=== PATIENT | male | born 1940 | race Caucasian/White ===

== ENCOUNTER → 2018-01-23 | Outpatient (CLI) | payer MEDICARE, OTHER ==
--- NOTE | 2018-01-23 20:11 | CONS ---
CONSULTATION 77-year-old male patient who has chronic atrial fibrillation. During a recent evaluation with his radiology director there were complaints of increased fatigue and some degree of sleepiness and for that reason, the patient was referred to me. His ensured me that the patient snores loudly and quits breathing. He goes to bed around 10:00 p.m., wakes up 7:00 am in the morning. He describes his sleep quality to be poor. He wakes up on and off during the night. Weight has been stable for years without any recent weight gain or weight loss. Denies waking up, choking or gasping for air. No nocturia, no dry mouth. No napping during the day. 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 He does not have any significant anatomic problems in his upper airway. No facial trauma. No substance abuse. No sleep paralysis. No hallucinations. No cataplexy. No clear psychiatric disorder such as anxiety or depression. PAST MEDICAL HISTORY: Chronic atrial fibrillation. PAST SURGICAL HISTORY: Rotator cuff surgery repair in 2013. Right biceps tendon release in 2016, extensor tendon release from the elbow in 2004. Colonoscopy in 1991, inguinal hernia repair 1968. Tonsillectomy in 1966. Tonsils and adenoids as a child. DRUG ALLERGIES: Not known. MEDICATION LIST: Includes Lipitor, Xarelto and Cardia XT. FAMILY HISTORY: Negative for sleep apnea. SOCIAL HISTORY: Nonsmoker. No history of alcohol or IV drugs. REVIEW OF SYSTEMS: 12-point review of system was done. Positive for fatigue and tiredness. Some degree of sleepiness. No palpitation. No chest pain. No shortness of breath. No nocturnal dyspnea or heartburn. No grinding of the teeth. No sleepwalking or sleep talking. No restlessness in lower extremities. No choking or gasping sensation at nighttime. No irritability. No depression or anxiety. No claustrophobia. PHYSICAL EXAMINATION: BP is 124/68, pulse 82, respirations 16, temperature 97.9. Saturation 96% on room air. Weight is 231. Height is 6 feet 1 inch, neck size 16-1/2 inches. GENERAL APPEARANCE: Calm, comfortable. Head is atraumatic, normocephalic. NECK: Supple. There is no JVD. No goiter or neck masses. Mallampati class 2. LUNGS: Clear to auscultation. HEART: Sounds regular rate and rhythm. Normal S1, S2. No S3. No murmurs. ABDOMEN: Soft, nontender. No organomegaly. EXTREMITIES: No edema. No cyanosis or clubbing. IMPRESSION: 1. Questionable obstructive sleep apnea under investigation. The patient has some degree of fatigue. The patient has increased fatigue with some degree of sleepiness and in addition to that, it was reported the patient has snoring and apneas at night time and this raises the suspicion for obstructive sleep apnea and the patient was referred to me for sleep evaluation. 2. Chronic atrial fibrillation. PLAN: 1. Proceed with a screening polysomnogram. 2. Review the results once available. We will get the patient if any further treatment if needed. 3. Sleep hygiene measures in general are good in this patient. This will be continued. 4. Management of atrial fibrillation per Cardiology. 5. We will continue to follow. ERICK / DIANEN: [id number] /
== END ==
LOC: SLEEP 13:15
PROVIDERS: ATTEND Internal Medicine Critical Care Medicine
DX: R06.83 Snoring (principal); R53.83 Other fatigue; I48.2 Chronic atrial fibrillation; Z79.899 Other long term (current) drug therapy
CPT/HCPCS: 99211

== ENCOUNTER → 2018-10-23 | Outpatient (CLI) | payer MEDICARE, OTHER ==
--- NOTE | 2018-10-23 17:33 | PN ---
PROGRESS NOTE This patient is 78, diagnosed having severe symptomatic obstructive sleep apnea with an AHI of 76. The patient was in [place]. He is coming in for a compliancy check. This is his first visit after obtaining his BiPAP machine. He is doing well. His BiPAP is set at a pressure of 14/10 cm of water. Based on the compliance data, he is averaging around 6.1 hours of BiPAP use per night, and his BiPAP use for more than 4 hours is 25/30. Tidal volume is at 700 with a leak of 10 L/minute, and he is using a DreamWear under- the-nose full-face mask, large size. AHI while on treatment is down to 4.3. In general, the patient's treatment has been successful and the patient has no specific complaints. He is still in atrial fibrillation. He is trying to gradually get more accustomed and used to the treatment. No major hypersomnia or sleepiness at this point in time. No snoring while on treatment. He is benefiting from the treatment. He reports improved sleep quality while on the BiPAP treatment. REVIEW OF SYSTEMS: Fourteen-point review of system was done. Positive findings are all mentioned above in the history of present illness. No issues with memory or concentration. No issues with any restlessness in the lower extremities. No unusual behavior at nighttime. No aggressive behavior. No sleepwalking. No sleeptalking. No chest pain or shortness of breath. No heartburn. No seizures. PHYSICAL EXAMINATION: BP is 127/73, pulse 74, respirations 16, temperature 98.1, saturation 96% on room air. Weight is 236. GENERAL APPEARANCE: Calm, comfortable. Head is atraumatic, normocephalic. NECK: Supple. No JVD. No goiter or neck mass. Mallampati class IV. LUNGS: Clear to auscultation. HEART: Heart sounds are regular rate and rhythm. Normal S1, S2. No S3, S4. No murmurs. ABDOMEN: Soft, nontender. No organomegaly. EXTREMITIES: No edema. No cyanosis or clubbing. Neurologically he is alert and oriented x3. There is no focal neurological deficit. PSYCHIATRIC: Negative for anxiety or depression. IMPRESSION: 1. Severe symptomatic obstructive sleep apnea with an apnea/hypopnea index of 34, currently on BiPAP with a pressure of 14/10 cm of water. The patient is clinically responding and his compliance data shows adequate use. 2. Chronic atrial fibrillation. PLAN: Compliance data was checked. The patient is benefitting from the treatment. Continue same treatment for now. No need for any adjustments in the pressure settings. He is using the DreamWear [id number] mask. He is quite comfortable. The only issue that he mentioned was excessive dryness in the mouth. The patient was instructed how to increase the humidity in his machine up to 4. The temperature of the tubing was also dropped down to 66. Will continue to follow and make further recommendations based on his progress. The patient will see me back in a year's time. Encourage weight loss. Optimize sleep hygiene measures. Will follow. MMODL / IJN: [id number] /
== END ==
LOC: SLEEP 13:03
PROVIDERS: ATTEND Internal Medicine Critical Care Medicine
DX: G47.33 Obstructive sleep apnea (adult) (pediatric) (principal); I48.2 Chronic atrial fibrillation; Z99.89 Dependence on other enabling machines and devices

== ENCOUNTER 2019-11-29 14:50 | Outpatient (CLI) | payer MEDICARE, OTHER | END 2019-11-29 15:10 | disposition home or self-care (01) | LOC: LABWHC1 14:50 | PROVIDERS: ATTEND Internal Medicine | DX: Z53.9 Procedure and treatment not carried out, unspecified reason (principal) ==

== ENCOUNTER → 2020-12-01 | Outpatient (CLI) | payer MEDICARE, OTHER ==
--- NOTE | 2020-12-01 17:10 | PN ---
PROGRESS NOTE This patient is 80, coming in for routine check regarding obstructive sleep apnea. He is well known to me. The patient has a severe case of SHRUTHI with an AHI of 76, and the patient continues to be treated with a BiPAP at a pressure of 14/10 cm of water. He is doing extremely well. He remains in atrial fibrillation. There is no evidence of any new cardiac disease or cardiac dysfunction since his last evaluation. His weight has remained stable with a few pounds weight gain and currently is up to 244 pounds. No sleepiness or tiredness or fatigue during the day. He has a ResMed VPAP unit which is set at a pressure of 14/10 cm of water. Based on a 30-day compliance, the patient has been utilizing his machine every night on an average of 6.1 hours of BiPAP use per night. His BiPAP use for more than 4 hours is above 90%. His leak in order of 55 L/minutes. Tidal volume is at 640 with a respiratory rate of 13, minute ventilation of 8.4 L and his AHI is down to 7. He is using a DreamWear under the nose fullface mask, large size. No complaints whatsoever. REVIEW OF SYSTEMS: Fourteen-point review of system was done and positive findings are mentioned in history of present illness. PHYSICAL EXAMINATION: BP is 123/78, pulse 77, respirations 16, temperature 97.4. Height is 6 feet 1 inch, weight is 342 and BMI 31.7. [place] score is at 4. GENERAL APPEARANCE: Calm comfortable. HEAD is atraumatic, normocephalic. NECK: Supple. No JVD. No goiter or neck masses. LUNGS: Diminished, otherwise clear. HEART: Heart sounds are irregular rhythm. Normal S1, S2. No S3, S4. No murmurs. ABDOMEN: Soft, nontender. No organomegaly. EXTREMITIES: No edema, no cyanosis or clubbing. IMPRESSION: 1. Severe obstructive sleep apnea, AHI of 76. Currently the patient is on BiPAP at a pressure of 14/10 cm of water and she has been successfully treated. Compliance data was checked. The machine is functional. No need for any further adjustment. 2. Obesity, BMI of 31.7. 3. Chronic atrial fibrillation, chronic atrial fibrillation. PLAN: 1. Continue BiPAP therapy at same level of pressures. 2. Refill the CPAP supplies including a DreamWear under the nose fullface mask, large size. 3. Tight control of cardiovascular risk factors. 4. Implement good sleep hygiene measures. 5. We will follow up in a year's time. For now his treatment is successful and there is no need for any further adjustments. ERICK / IJN: [id number] /
== END ==
LOC: SLEEP 15:22
PROVIDERS: ATTEND Internal Medicine Critical Care Medicine
DX: G47.33 Obstructive sleep apnea (adult) (pediatric) (principal); I48.20 Chronic atrial fibrillation, unspecified; E66.9 Obesity, unspecified; Z68.31 Body mass index [BMI] 31.0-31.9, adult; Z99.81 Dependence on supplemental oxygen
CPT/HCPCS: 99211

== ENCOUNTER → 2021-12-14 | Outpatient (CLI) | payer MEDICARE, OTHER ==
--- NOTE | 2021-12-14 15:08 | P.PN ---
Subjective Progress Note Date: 12/14/21 A 81-year-old male patient is coming in for an annual check regarding his obstructive sleep apnea. The patient is a case of severe SHRUTHI with an AHI of 76 and the patient has been on a BiPAP pressure of 14/10 cm of water and he uses a dreamware fullface mask large size. On today's evaluation, the patient states that his machine is noisy, is turning up unexpectedly and his been using the same machine more than 5 years and he is very much interested in updating his BiPAP machine. Same time, he shows adequate compliancy. The patient has utilized his BiPAP machine every night at the same pressure of 14/10 cm of water and the patient is achieving more than 4 hours approximately 50% of the time. He isn't bothered as the patient is having excessive leaks on the mask in the order of 52 L per minute. He generated tidal volumes around 600 with a respiratory rate of 12. His AHI down to 7.8. No hypersomnia and sleepiness during the day. No major weight and her weight loss over the past 1 year. Based on mask fitting evaluation was done today in the office, I think should be using a medium-sized dreamware fullface mask. He has issues with chronic atrial fibrillation. No history of any stroke. No congestion heart failure. No pulmonary or any other cardiac complications over the past 1 year. Objective - Exam BP is 140/76 with a pulse of 74 and respirations 16 and temperature 96.4 and the patient's weight is 211 pounds and an [place] score is a 4 and a body mass index is 28. The patient appeared well nourished and normally developed. Vital signs as documented. Head exam is unremarkable. No scleral icterus or corneal arcus n oted. Neck is without jugular venous distension, thyromegaly, or carotid bruits. Carotid upstrokes are brisk bilaterally. Lungs are clear to auscultation and percussion. Cardiac exam reveals the PMI to be normally sized and situated. Rhythm is regular. First and second heart sounds normal. No murmurs, rubs or gallops. Abdominal exam reveals normal bowel sounds, no masses, no organomegaly and no aortic enlargement. Extremities are nonedematous and both femoral and pedal pulses are normal.Examination of the skin revealed no evidence of significant rashes, suspicious appearing nevi or other concerning lesions.Neurologically, the patient is awake and alert and the patient does not have any focal neurological deficit. Cranial nerves are essentially intact. Assessment and Plan Plan: Impression obstructive sleep apnea severe with an AHI of 76. The patient remains successfully treated with a BiPAP at a pressure of 14/10 cm of water. The patient is interested in updating his BiPAP machine due to some malfunctioning. At the same time, the patient is in need for a new mask which I think should be a medium-sized dreamware fullface mask Obesity Chronic atrial fibrillation Plan Continue BiPAP therapy to send level of pressures which is 14/10 cm of water Ordered the patient new generation ResMed BiPAP unit Offered to patient dreamware medium-sized fullface mask and this should be able to lower the amount of mask leaks Increase the exception of the tubing up to 78 and keep the humidity level at 4 See him back in follow-up after obtaining a new machine within 30-90 days for another compliancy check. Sleep quality is good and the patient is very compliant
== END ==
LOC: SLEEP 13:52
PROVIDERS: ATTEND Internal Medicine Critical Care Medicine
DX: G47.33 Obstructive sleep apnea (adult) (pediatric) (principal); E66.9 Obesity, unspecified; Z99.89 Dependence on other enabling machines and devices; I48.20 Chronic atrial fibrillation, unspecified; Z68.28 Body mass index [BMI] 28.0-28.9, adult

== ENCOUNTER → 2023-04-04 | Outpatient (CLI) | payer MEDICARE, OTHER ==
--- NOTE | 2023-04-04 17:01 | P.PN ---
Progress Note - Text Progress Note Date: 04/04/23 On today's evaluation of 04/04/2023, seeing the patient for a follow-up regarding his obstructive sleep apnea. The patient is a case of severe SHRUTHI with an AHI of 76. The patient remains on BiPAP therapy at a pressure of 14/10 cm of water. He is interested in updating his BiPAP machine. Meanwhile, the patient demonstrated adequate compliancy. Over the past 1 year, the patient has achieved usage of more than 90%. His BiPAP pressures currently at 14/10 cm of water. His leak is around 29 L/m his AHI is down to 9.4. No major hypersomnia or sleepiness during the day. Is using the [facility] full[facility]. No weight gain. No major weight loss. His mask fit is adequate. He has issues with chronic A. fib. No history of any multivessel complications. Also stroke. No 70 congestion heart failure. He is committed to long-term BiPAP therapy. He remains on same medication including long-term and coagulation with xarelto 20 mg by mouth daily. The patient's vitals indicated BP of 110/71, pulse is 93, respirations 16, temperature is 97.9 and pulse ox is 97% on room air. His current [place] score is at 6. Weight is 222. The patient appeared well nourished and normally developed. Vital signs as documented. Head exam is unremarkable. No scleral icterus or corneal arcus noted. Neck is without jugular venous distension, thyromegaly, or carotid bruits. Carotid upstrokes are brisk bilaterally. Lungs are clear to auscultation and percussion. Cardiac exam reveals the PMI to be normally sized and situated. Rhythm is regular. First and second heart sounds normal. No murmurs, rubs or gallops. Abdominal exam reveals normal bowel sounds, no masses, no organomegaly and no aortic enlargement. Extremities are nonedematous and both femoral and pedal pulses are normal.Examination of the skin revealed no evidence of significant rashes, suspicious appearing nevi or other concerning lesions.Neurologically, the patient is awake and alert and the patient does not have any focal neurological deficit. Cranial nerves are essentially intact. Assessment Severe obstructive sleep apnea with an AHI of 76. The patient remains on a BiPAP at a pressure of 14/10 cm of water. He reported issues with malfunctioning of his current machine and he wants to update his BiPAP machine. He'll be kept on the same mask interface. Obesity, stable weight Chronic atrial fibrillation. Plan Will order a new BiPAP machine for him. This will be a VPAP auto and this will be set S mode pressures of 14/10 with a C-Flex of 3 Keep the patient on a dreamware facemask. We'll utilize a humidity level of 4 and a temperature of 78 Encourage weight loss The patient was seen back in 30-90 days after obtaining his new BiPAP machine for another compliancy check. Treatment remained successful for now.
== END ==
LOC: 3 N SLEEP 14:16
PROVIDERS: ATTEND Internal Medicine Critical Care Medicine
DX: G47.33 Obstructive sleep apnea (adult) (pediatric) (principal); I48.20 Chronic atrial fibrillation, unspecified; E66.9 Obesity, unspecified
CPT/HCPCS: 99212

== ENCOUNTER → 2023-12-06 | Outpatient (CLI) | payer MEDICARE, OTHER ==
--- NOTE | 2023-12-06 09:36 | US ---
EXAMINATION TYPE: US abdomen complete DATE OF EXAM: 12/06/2023 COMPARISON: 01/05/2015 CLINICAL INDICATION: Male, 83 years old with history of K76.89 OTHER SPECIFIED DISEASES OF LIVER; alejandrina er cysts TECHNIQUE: Multiple sonographic images of the abdomen are obtained. 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 Several cysts noted. Largest measured in ea ch lobe: left: 1.6x1.2x1.9cm right: 2.0x2.1x1.9cm Gallbladder: wnl Evidence for sonographic Wagoner's sign: No CBD: wnl Spleen: wnl Right Kidney: No hydronephrosis or masses seen Left Kidney: No hydronephrosis or masses seen Upper IVC: wnl Abd Aorta: wnl exam limited by bowel gas and body habitus The intrahepatic portion of the IVC and proximal abdominal aorta are within normal limits. The liver is diffusely echogenic. Several simple thin-walled cysts identified within the liver. There is no get[place]w dence of cholelithiasis. Common bile duct is unremarkable. The visualized portions of the pancreas are homogenous. The tail is obscured by overlying bowel gas. The spleen is unremarkable. Kidneys ar e symmetric and free of hydronephrosis. No renal lesions are seen. IMPRESSION: 1. No ultrasound evidence for an acute process. 2. Hepatic steatosis. 3. Hepatic benign cysts.
== END | disposition home or self-care (01) ==
LOC: RADUSWWP 08:46
PROVIDERS: ATTEND Internal Medicine
DX: K76.89 Other specified diseases of liver (principal); K76.0 Fatty (change of) liver, not elsewhere classified
CPT/HCPCS: 76700